=== PATIENT | female | born 1970 | race African-American/Black ===

== ENCOUNTER 2017-04-29 20:30 | Emergency (ER) | payer OTHER ==
[2017-04-30] MEDS: KETOROLAC 60 MG/2 ML INJ. IM (00:05)
== END 2017-04-29 23:35 | disposition home or self-care (01) ==
LOC: ER 23:35
DX: S82.832A Other fracture of upper and lower end of left fibula, initial encounter for closed fracture (principal); Z88.2 Allergy status to sulfonamides; X58.XXXA Exposure to other specified factors, initial encounter; Y93.89 Activity, other specified; Y99.8 Other external cause status; Y92.89 Other specified places as the place of occurrence of the external cause
CPT/HCPCS: 29515; 73590; 73610; 96372; 99284-25; J1885

== ENCOUNTER 2018-11-09 10:17 | Inpatient (IN) | payer MEDICARE, MEDICAID ==
[~2018-11-09] VITALS: Ht 157.5 cm; Wt 76.4 kg
[~2018-11-09 10:17] MED LIST: CIPR500T94 PO; HYDR-3164 PO; ONDA4TAB10 SL
[2018-11-09] MEDS ORDERED: DIPHTH,PERTUSS(ACELL),TET TOX 0.5 ML DISP.SYRIN. VAX IM ONE (10:45)
[2018-11-09] MEDS ORDERED: fentaNYL PF VIAL 100 MCG/2 ML VIAL IV ONE (10:45)
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
[2018-11-09] MEDS ORDERED: MORPHINE SULFATE 4 MG/ML VIAL. IV ONE (12:15)
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
--- NOTE | 2018-11-09 13:03 | RAD ---
EXAM: RIGHT SHOULDER 2 VIEWS. HISTORY: Right shoulder injury and pain. COMPARISON: None. FINDINGS: There is a comminuted fracture of the proximal humerus involving the surgical neck and at least the greater tuberosity. There is one shaft width posterior displacement of the main distal humeral fragment. The greater tuberosity fracture is only minimally displaced. Glenohumeral joint spaces and alignment are maintained. Acromioclavicular joint spaces and alignment are maintained. A metallic object projecting over the right shoulder may be within the patient's clothing. Calcified mediastinal lymph nodes are likely secondary to old granulomatous disease. IMPRESSION: 1. Comminuted fracture of the proximal humerus involving the surgical neck and greater tuberosity. One shaft width displacement along the surgical neck fracture line. Electronically signed by: Reymundo Jackson MD (11/09/2018 1:00 PM) [facility]
--- NOTE | 2018-11-09 13:04 | RAD ---
EXAM: TIBIA FIBULA BILAT 2 VIEWS. HISTORY: Bilateral leg pain after injury. COMPARISON: None. FINDINGS: A chronic healed fracture suspected along the left distal fibular metaphysis. No acute fractures are seen. The joint spaces and alignment of both knees and ankles appear maintained. IMPRESSION: 1. No acute fracture. Electronically signed by: Reymundo Jackson MD (11/09/2018 1:01 PM) [facility]
[2018-11-09 13:11] LABS: CREATININE 0.9 mg/dL (0.6-1.0); GFR 81.2; MAGNESIUM 2.1 mg/dL (1.8-2.4); POTASSIUM 3.9 mmol/L (3.5-5.1)
[2018-11-09 13:12] LABS: BASO % 0 % (0-3); EOS % 0 % (0-3); HEMATOCRIT 41.4 % (36.0-47.0); HEMOGLOBIN 14.3 g/dL (12.0-15.5); LYMPH # 0.8 x10^3/uL (1.0-4.8); LYMPH % 10 % (24-48); MEAN CORPUSCULAR HEMOGLOBIN 34 pg (25-35); MEAN CORPUSCULAR HGB CONC 35 g/dL (31-37); MEAN CORPUSCULAR VOLUME 99 fL (79-100); MONO # 0.5 x10^3/uL (0.0-1.1); MONO % 7 % (0-9); NEUT # 6.4 x10^3uL (1.8-7.7); NEUT % 83 % (31-73); PLATELET COUNT 250 x10^3/uL (140-400); RED BLOOD COUNT 4.19 x10^6/uL (3.50-5.40); RED CELL DISTRIBUTION WIDTH 17.5 % (11.5-14.5); WHITE BLOOD COUNT 7.7 x10^3/uL (4.0-11.0)
[2018-11-09 13:17] LABS: PROTHROMBIN TIME PATIENT 14.3 SEC (11.7-14.0)
[2018-11-09] MEDS ORDERED: ACETAMINOPHEN 325 MG TABLET. PO PRN (14:00)
[2018-11-09] MEDS ORDERED: ONDANSETRON PF 4 MG/2 ML VIAL. IV PRN (14:00)
[2018-11-09] MEDS ORDERED: cloNIDine HCL 0.1 MG TABLET PO PRN (14:00)
[2018-11-09] MEDS ORDERED: LORazepam 1 MG TABLET PO PRN (14:00)
[2018-11-09] MEDS: MULTIVIT INFUSN,ADULT 4,VIT K 10 ML, THIAMINE INJ 100 MG, FOLIC ACID INJ 1 MG in IV NOR... IV SCH (14:54)
[2018-11-09 15:00] VITALS: BP 115/77
[2018-11-09] MEDS: MORPHINE SULFATE 2 MG/ML VIAL. IV PRN ×3 (16:18→23:03)
[2018-11-09] MEDS ORDERED: NICOTINE 21MG PATCH. TD PRN (17:00)
[2018-11-09 19:00] VITALS: BP 141/87
[2018-11-09 23:00] VITALS: BP 142/84
[2018-11-10] MEDS: MORPHINE SULFATE 2 MG/ML VIAL. IV PRN ×6 (02:53→21:10)
[2018-11-10 03:00] VITALS: BP 152/87
[2018-11-10 07:00] VITALS: BP 172/96
[2018-11-10] MEDS: MULTIVIT INFUSN,ADULT 4,VIT K 10 ML, THIAMINE INJ 100 MG, FOLIC ACID INJ 1 MG in IV NOR... IV SCH (08:44)
--- NOTE | 2018-11-10 10:20 | PDOC ---
PROGRESS NOTES History of Present Illness History of Present Illness VTE Prophylaxis Ordered VTE Prophylaxis Devices: Yes VTE Pharmacological Prophylaxi: No Assessment/Plan Assessment/Plan A/P: Right humerus fracture - at surgical neck, displaced. This likely will require surgical correction. She is currently intoxicated, would recommend delaying surgery until she is sober to reduce perioperative risk of bleeding and to obtain informed consent. Tylenol and tramadol for pain, morphine for breakthrough. Zofran for nausea Comminuted fracture of the proximal humerus involving the surgical neck and greater tuberosity. One shaft width displacement along the surgical neck fracture line. Scalp hematoma - ice to site prn, tylenol for pain Acute alcohol intoxication - uncertain how heavily she actually drinks, will give banana bag and CIWA protocol Smoker - counseled on cessation, offered nicotine patch ct shoulder FEN - General diet, npo after midnight PPX - SCDs, ambulatory FULL CODE Dispo - inpatient med/surg for humerus fracture. 38 min pt exam, chart review, > 50% of time spent with exam, chart review, pt care coordination Vitals Vitals Vital Signs Date Time Temp Pulse Resp B/P (MAP) Pulse Ox O2 Delivery O2 Flow Rate FiO2 11/10/18 09:52 Room Air 11/10/18 07:00 98.4 81 18 172/96 (121) 98 98.4 Physical Exam General: Alert, Oriented X3, Cooperative, No acute distress, Other (intoxicated) Abdomen: Normal bowel sounds, Soft, No tenderness, No hepatosplenomegaly, No masses Extremities: No clubbing, No cyanosis, No edema, Normal pulses, Other (right shoulder tender) Skin: No rashes, No breakdown, No significant lesion Labs LABS IMPRESSION: 1. Comminuted fracture of the proximal humerus involving the surgical neck and greater tuberosity. One shaft width displacement along the surgical neck fracture line. Laboratory Tests Test 11/09/18 12:34 White Blood Count 7.7 x10^3/uL (4.0-11.0) Red Blood Count 4.19 x10^6/uL (3.50-5.40) Hemoglobin 14.3 g/dL (12.0-15.5) Hematocrit 41.4 % (36.0-47.0) Mean Corpuscular Volume 99 fL (79-100) Mean Corpuscular Hemoglobin 34 pg (25-35) Mean Corpuscular Hemoglobin Concent 35 g/dL (31-37) Red Cell Distribution Width 17.5 % (11.5-14.5) Platelet Count 250 x10^3/uL (140-400) Neutrophils (%) (Auto) 83 % (31-73) Lymphocytes (%) (Auto) 10 % (24-48) Monocytes (%) (Auto) 7 % (0-9) Eosinophils (%) (Auto) 0 % (0-3) Basophils (%) (Auto) 0 % (0-3) Neutrophils # (Auto) 6.4 x10^3uL (1.8-7.7) Lymphocytes # (Auto) 0.8 x10^3/uL (1.0-4.8) Monocytes # (Auto) 0.5 x10^3/uL (0.0-1.1) Eosinophils # (Auto) 0.0 x10^3/uL (0.0-0.7) Basophils # (Auto) 0.0 x10^3/uL (0.0-0.2) Prothrombin Time 14.3 SEC (11.7-14.0) Prothromb Time International Ratio 1.1 (0.8-1.1) Activated Partial Thromboplast Time 30 SEC (24-38) Sodium Level 141 mmol/L (136-145) Potassium Level 3.9 mmol/L (3.5-5.1) Chloride Level 101 mmol/L (98-107) Carbon Dioxide Level 19 mmol/L (21-32) Anion Gap 21 (6-14) Blood Urea Nitrogen 8 mg/dL (7-20) Creatinine 0.9 mg/dL (0.6-1.0) Estimated GFR (Cockcroft-Gault) 81.2 Glucose Level 95 mg/dL (70-99) Calcium Level 9.0 mg/dL (8.5-10.1) Magnesium Level 2.1 mg/dL (1.8-2.4) Ethyl Alcohol Level 228 mg/dL (0-10) Assessment and Plan Assessmemt and Plan Problems Medical Problems: (1) Alcohol intoxication Status: Acute (2) Humeral surgical neck fracture Status: Acute (3) Humerus fracture Status: Acute (4) Scalp hematoma Status: Acute Past Medical History Past Medical History Past Medical History: Anxiety, CHF Past Surgical History: , Hysterectomy Alcohol Use: Occasionally Drug Use: None, Marijuana Comment Review of Relevant I have reviewed the following items jean marie (where applicable) has been applied. Labs Laboratory Tests Test 11/09/18 12:34 White Blood Count 7.7 x10^3/uL (4.0-11.0) Red Blood Count 4.19 x10^6/uL (3.50-5.40) Hemoglobin 14.3 g/dL (12.0-15.5) Hematocrit 41.4 % (36.0-47.0) Mean Corpuscular Volume 99 fL (79-100) Mean Corpuscular Hemoglobin 34 pg (25-35) Mean Corpuscular Hemoglobin Concent 35 g/dL (31-37) Red Cell Distribution Width 17.5 % (11.5-14.5) Platelet Count 250 x10^3/uL (140-400) Neutrophils (%) (Auto) 83 % (31-73) Lymphocytes (%) (Auto) 10 % (24-48) Monocytes (%) (Auto) 7 % (0-9) Eosinophils (%) (Auto) 0 % (0-3) Basophils (%) (Auto) 0 % (0-3) Neutrophils # (Auto) 6.4 x10^3uL (1.8-7.7) Lymphocytes # (Auto) 0.8 x10^3/uL (1.0-4.8) Monocytes # (Auto) 0.5 x10^3/uL (0.0-1.1) Eosinophils # (Auto) 0.0 x10^3/uL (0.0-0.7) Basophils # (Auto) 0.0 x10^3/uL (0.0-0.2) Prothrombin Time 14.3 SEC (11.7-14.0) Prothromb Time International Ratio 1.1 (0.8-1.1) Activated Partial Thromboplast Time 30 SEC (24-38) Sodium Level 141 mmol/L (136-145) Potassium Level 3.9 mmol/L (3.5-5.1) Chloride Level 101 mmol/L (98-107) Carbon Dioxide Level 19 mmol/L (21-32) Anion Gap 21 (6-14) Blood Urea Nitrogen 8 mg/dL (7-20) Creatinine 0.9 mg/dL (0.6-1.0) Estimated GFR (Cockcroft-Gault) 81.2 Glucose Level 95 mg/dL (70-99) Calcium Level 9.0 mg/dL (8.5-10.1) Magnesium Level 2.1 mg/dL (1.8-2.4) Ethyl Alcohol Level 228 mg/dL (0-10) Laboratory Tests Test 11/09/18 12:34 White Blood Count 7.7 x10^3/uL (4.0-11.0) Red Blood Count 4.19 x10^6/uL (3.50-5.40) Hemoglobin 14.3 g/dL (12.0-15.5) Hematocrit 41.4 % (36.0-47.0) Mean Corpuscular Volume 99 fL (79-100) Mean Corpuscular Hemoglobin 34 pg (25-35) Mean Corpuscular Hemoglobin Concent 35 g/dL (31-37) Red Cell Distribution Width 17.5 % (11.5-14.5) Platelet Count 250 x10^3/uL (140-400) Neutrophils (%) (Auto) 83 % (31-73) Lymphocytes (%) (Auto) 10 % (24-48) Monocytes (%) (Auto) 7 % (0-9) Eosinophils (%) (Auto) 0 % (0-3) Basophils (%) (Auto) 0 % (0-3) Neutrophils # (Auto) 6.4 x10^3uL (1.8-7.7) Lymphocytes # (Auto) 0.8 x10^3/uL (1.0-4.8) Monocytes # (Auto) 0.5 x10^3/uL (0.0-1.1) Eosinophils # (Auto) 0.0 x10^3/uL (0.0-0.7) Basophils # (Auto) 0.0 x10^3/uL (0.0-0.2) Prothrombin Time 14.3 SEC (11.7-14.0) Prothromb Time International Ratio 1.1 (0.8-1.1) Activated Partial Thromboplast Time 30 SEC (24-38) Sodium Level 141 mmol/L (136-145) Potassium Level 3.9 mmol/L (3.5-5.1) Chloride Level 101 mmol/L (98-107) Carbon Dioxide Level 19 mmol/L (21-32) Anion Gap 21 (6-14) Blood Urea Nitrogen 8 mg/dL (7-20) Creatinine 0.9 mg/dL (0.6-1.0) Estimated GFR (Cockcroft-Gault) 81.2 Glucose Level 95 mg/dL (70-99) Calcium Level 9.0 mg/dL (8.5-10.1) Magnesium Level 2.1 mg/dL (1.8-2.4) Ethyl Alcohol Level 228 mg/dL (0-10) Medications Current Medications Fentanyl Citrate (Fentanyl 2ml Vial) 50 mcg 1X ONCE IV Last administered on at 10:56; Start 11/09/18 at 10:45; Stop 11/09/18 at 10:46; Status DC Diphtheria/ Tetanus/Acell Pertussis (Boostrix) 0.5 ml ONCE ONCE VAX IM Last administered on 11/09/18at 10:57; Start 11/09/18 at 10:45; Stop 11/09/18 at 10:46; Status DC Morphine Sulfate (Morphine Sulfate) 4 mg 1X ONCE IV Last administered on 11/09/18at 12:18; Start 11/09/18 at 12:15; Stop 11/09/18 at 12:16; Status DC Multivitamins 10 ml/Thiamine HCl 100 mg/Folic Acid 1 mg/Sodium Chloride 1,011.2 ml @ 100 mls/ hr DAILY IV Last administered on 11/10/18at 08:44; Start 11/09/18 at 14:30; Stop 11/13/18 at 19:07 Lorazepam (Ativan) 2 mg PRN Q1HR PRN PO For CIWA 8-14; Start 11/09/18 at 14:00 Lorazepam (Ativan Inj) 2 mg PRN Q1HR PRN IV For CIWA 8-14 Last administered on 11/09/18at 18:20; Start 11/09/18 at 14:00 Clonidine HCl (Catapres) 0.1 mg PRN Q1HR PRN PO SBP > 180 or DBP > 100, MRX3; Start 11/09/18 at 14:00 Ondansetron HCl (Zofran) 4 mg PRN Q6HRS PRN IV NAUSEA/VOMITING; Start 11/09/18 at 14:00 Acetaminophen (Tylenol) 650 mg PRN Q6HRS PRN PO pain; Start 11/09/18 at 14:00 Tramadol HCl (Ultram) 50 mg PRN Q6HRS PRN PO PAIN MILD; Start 11/09/18 at 14:00 Morphine Sulfate (Morphine Sulfate) 2 mg PRN Q2HR PRN IV PAIN Last administered on 11/10/18at 09:52; Start 11/09/18 at 14:00 Nicotine (Nicoderm Cq 21mg) 1 patch PRN DAILY PRN TD SMOKING CESSATION; Start 11/09/18 at 17:00 Active Scripts Active [place] 5-325 Tablet (Acetaminophen/Hydrocodone Bitart) 1 Each Tablet 1 Tab PO PRN Q6HRS PRN Zofran Odt (Ondansetron) 4 Mg Tab.rapdis 1 Tab SL Q8HRS Cipro (Ciprofloxacin Hcl) 500 Mg Tablet 1 Tab PO BID Vitals/I & O Vital Sign - Last 24 Hours 11/09/18 11/09/18 11/09/18 11/09/18 10:31 10:56 11:00 12:00 Temp 98.3 98.3 Pulse 82 86 82 Resp 20 16 B/P (MAP) 114/89 (97) 174/103 (126) 133/82 (99) Pulse Ox 96 96 96 O2 Delivery Room Air Room Air Room Air 11/09/18 11/09/18 11/09/18 11/09/18 15:00 16:18 19:00 19:45 Temp 98.1 98.3 98.1 98.3 Pulse 74 84 Resp 18 18 B/P (MAP) 115/77 (90) 141/87 (105) Pulse Ox 98 91 O2 Delivery Room Air Room Air Room Air Room Air 11/09/18 11/09/18 11/09/18 11/10/18 20:39 23:00 23:03 02:53 Temp 98.5 98.5 Pulse 85 Resp 18 B/P (MAP) 142/84 (103) Pulse Ox 92 O2 Delivery Room Air Room Air Room Air Room Air 11/10/18 11/10/18 11/10/18 11/10/18 03:00 06:17 06:47 07:00 Temp 98.4 98.4 98.4 98.4 Pulse 80 81 Resp 18 18 B/P (MAP) 152/87 (108) 172/96 (121) Pulse Ox 95 98 O2 Delivery Room Air Room Air Room Air Room Air 11/10/18 11/10/18 08:00 09:52 O2 Delivery Room Air Room Air THA MORRISON MD Nov 10, 2018 10:20
[2018-11-10 11:00] VITALS: BP 173/98
[2018-11-10] MEDS ORDERED: IV RINGERS,LACTATED 1000ML 1,000 ML IV SCH (12:21)
[2018-11-10] MEDS ORDERED: fentaNYL PF VIAL 100 MCG/2 ML VIAL IV PRN (12:30)
[2018-11-10] MEDS ORDERED: PROCHLORPERAZINE 10 MG/2 ML VIAL. IV PRN (12:30)
[2018-11-10] MEDS ORDERED: MORPHINE SULFATE 2 MG/ML VIAL. IV PRN (12:30)
[2018-11-10] MEDS ORDERED: LIDOCAINE 1% PF 2 ML VIAL. ID PRN (12:30)
[2018-11-10] MEDS ORDERED: BUPIVACAINE-EPI 0.25%-1:200000 MPF 30 ML VIAL. ONE ×2 (14:46→14:47)
[2018-11-10 15:00] VITALS: BP 171/101
--- NOTE | 2018-11-10 16:09 | RAD ---
CT study of the right humerus without contrast Clinical indications: Right humerus fracture. Preoperative planning. TECHNIQUE: Noncontrast helical CT scanning of the right humerus was performed. Multiplanar 2-D reconstructions were generated. PQRS compliance Statement One or more of the following individualized dose reduction techniques were utilized for this study: 1. Automated exposure control 2. Adjustment of the mA and/or kV according to patient size 3. Use of iterative reconstruction technique Findings: There is a comminuted fracture of the proximal right humerus involving the proximal metaphysis.. The shaft is displaced laterally and posteriorly. There is foreshortening of the fracture. No significant angulation is evident. Additional fracture lines are seen extending into the lateral aspect of the humeral head and greater tubercle and a fracture line is seen extending into the lesser tubercle as well. Fracture line is seen extending into the inferior aspect of the bicipital groove. No articular surface fracture of the humeral head is seen. The glenohumeral joint is normally aligned. No AC joint separation is seen. No lytic process is seen. Soft tissue edema is seen without definite soft tissue hematoma. No soft tissue mass is seen. IMPRESSION: Posttraumatic comminuted fracture of the proximal right humerus. Electronically signed by: Leonel Li MD (11/10/2018 4:06 PM) [id number]
[2018-11-10] MEDS ORDERED: fentaNYL PF VIAL 100 MCG/2 ML VIAL ONE (16:21)
[2018-11-10] MEDS ORDERED: fentaNYL PF VIAL 100 MCG/2 ML VIAL IV ONE (16:30)
[2018-11-10] MEDS: traMADol 50 MG TABLET PO PRN (18:10)
[2018-11-10 19:00] VITALS: BP 155/78
[2018-11-10 23:00] VITALS: BP 137/80
[2018-11-11] VITALS (11 sets, daily range): BP systolic 107–166; BP diastolic 61–95
[2018-11-11] MEDS: traMADol 50 MG TABLET PO PRN (00:55)
[2018-11-11] MEDS: MORPHINE SULFATE 2 MG/ML VIAL. IV PRN ×2 (03:10→07:11)
[2018-11-11 06:34] LABS: BASO % 1 % (0-3); EOS # 0.1 x10^3/uL (0.0-0.7); EOS % 3 % (0-3); HEMATOCRIT 37.7 % (36.0-47.0); HEMOGLOBIN 12.8 g/dL (12.0-15.5); LYMPH # 0.8 x10^3/uL (1.0-4.8); LYMPH % 18 % (24-48); MEAN CORPUSCULAR HEMOGLOBIN 34 pg (25-35); MEAN CORPUSCULAR HGB CONC 34 g/dL (31-37); MEAN CORPUSCULAR VOLUME 99 fL (79-100); MONO # 0.6 x10^3/uL (0.0-1.1); MONO % 12 % (0-9); NEUT # 3.2 x10^3uL (1.8-7.7); NEUT % 67 % (31-73); PLATELET COUNT 190 x10^3/uL (140-400); RED BLOOD COUNT 3.81 x10^6/uL (3.50-5.40); WHITE BLOOD COUNT 4.7 x10^3/uL (4.0-11.0)
[2018-11-11 06:59] LABS: ALBUMIN 3.8 g/dL (3.4-5.0); CALCIUM 9.3 mg/dL (8.5-10.1); CREATININE 0.7 mg/dL (0.6-1.0); GFR 108.5; POTASSIUM 3.3 mmol/L (3.5-5.1); TOTAL BILIRUBIN 1.1 mg/dL (0.2-1.0); TOTAL PROTEIN 7.5 g/dL (6.4-8.2)
[2018-11-11] MEDS ORDERED: BUPIVACAINE-EPI 0.25%-1:200000 MPF 30 ML VIAL. ONE (07:41)
[2018-11-11] MEDS ORDERED: LIDOCAINE 2% PF 5 ML VIAL. ONE (08:04)
[2018-11-11] MEDS ORDERED: DEXAMETHASONE SOD PHOS 4 MG/ML VIAL ONE (08:04)
[2018-11-11] MEDS ORDERED: PROPOFOL 20 ML IV ONE (08:04)
[2018-11-11] MEDS ORDERED: ONDANSETRON PF 4 MG/2 ML VIAL. ONE (08:05)
[2018-11-11] MEDS ORDERED: fentaNYL PF VIAL 100 MCG/2 ML VIAL ONE ×3 (08:06→11:35)
[2018-11-11] MEDS ORDERED: ROCURONIUM 50 MG/5 ML VIAL. ONE (08:06)
[2018-11-11] MEDS: IV RINGERS,LACTATED 1000ML 1,000 ML IV SCH ×2 (08:10→20:05)
[2018-11-11] MEDS ORDERED: MIDAZOLAM HCL/PF 2 MG/2 ML VIAL. ONE (08:12)
[2018-11-11] MEDS ORDERED: PHENYLEPHRINE in 0.9% NACL PF 1 MG/10 ML SYRINGE. IV ONE (09:23)
[2018-11-11] MEDS ORDERED: PHENYLEPHRINE 10 MG/ML VIAL. ONE (09:28)
[2018-11-11] MEDS ORDERED: NEOSTIGMINE METHYLSULFATE 5 MG/5 ML SYRINGE. ONE (09:35)
[2018-11-11] MEDS ORDERED: GLYCOPYRROLATE 1 MG/5 ML VIAL. ONE (09:35)
[2018-11-11] MEDS ORDERED: PROCHLORPERAZINE 10 MG/2 ML VIAL. ONE (11:35)
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
[2018-11-11] MEDS: fentaNYL PF VIAL 100 MCG/2 ML VIAL IV PRN ×2 (11:40→11:46)
[2018-11-11] MEDS ORDERED: HYDROmorphone 2 MG/ML VIAL ONE (11:51)
--- NOTE | 2018-11-11 11:51 | PDOC4 ---
Operative Note Operative Note Date of Procedure: November 11, 2018 Pre-Op Diagnosis: S42.221A Two-part displaced fracture of surgical neck of right humerus, initial encounter for closed fracture Post-Op Diagnosis: S42.221A Two-part displaced fracture of surgical neck of right humerus, initial encounter for closed fracture Procedure: CPT 99968 open treatment proximal humeral surgical neck fracture with internal fixation, and stabilization of nondisplaced tuberosity fractures Surgeon: Carroll Enamorado MD Hospice Clinical Manager: Marisa NUGENT Anesthesia: General EBL: 200 mL Specimens Obtained: none Complications: none Drains: none Indications for Procedure: The patient is a 48-year-old woman who sustained a closed displaced fracture of the proximal humerus. The main fracture line is a 2 part displaced fracture with essentially 100% displacement of the shaft head. CT scan also shows some comminution involving the greater and lesser tuberosities. I recommended open treatment with internal fixation, using a plate and screws. The patient and I discussed the risks, benefits and alternatives of surgery. I discussed risks with her such as avascular necrosis, need for hardware removal, infection, nonunion or malunion, shoulder stiffness, neurovascular injury, bleeding, scarring, or other potential surgical or anesthetic complications. All of her questions about surgery were answered and she desired to proceed. Procedure in Detail: The patient was identified in the preoperative holding area. The correct right shoulder was marked by me. The patient was taken to the operating room where general anesthesia was used. The patient was positioned supine on the operating table. Preoperative antibiotics were given intravenously. A timeout procedure was performed. The limb was prepared in sterile fashion with ChloraPrep. Sterile drapes were applied. The large image intensifier was positioned at the head of the bed, and used throughout the procedure, and all of the images were interpreted intraoperatively by me. The deltopectoral approach was used. I injected local anesthetic, bupivacaine 0.25% with epinephrine, into the area of the proposed incision. A 10 blade scalpel was used for sharp dissection. The deltopectoral interval was identified. The cephalic vein was retracted laterally. A Kobel retractor was placed, with care made not to injure the musculocutaneous nerve or the axillary nerve. I placed a bent Alfonso retractor, which my medical assistant secretary used to expose the humeral head. There was comminution of the greater tuberosity which was protected by stabilizing it with K wires to prevent any further displacement. Fracture hematoma was cleared with irrigation and a rongeurs. The shaft was markedly displaced posteriorly, and required traction and a bone hook to disimpact the shaft, and allowed it to be reduced underneath the head. K wires were used to stabilize the fracture reduction, and the large image intensifier was used to confirm the reduction. Several attempts were required to get a satisfactory reduction. Next a Synthes locking periarticular proximal humerus plate was applied. K wires and a nonlocking screw were used, for preliminary plate application, and the plate was repositioned several times until satisfactory positioning was achieved on the image intensifier. The greater tuberosity fragment was captured by the plate, and I applied the plate a few millimeters more proximal than usual, to help capture the tuberosity fragment and stabilize it. The entire proximal cluster of the plate was now filled with locking screws using the drill guide, and after predrilling. Measurements were taken off the drill bit. I made care not to plunge into the joint with the drill bit, and each of the screws were placed about 6 mm short of the subchondral bone and articular surface to avoid any joint penetration or joint impingement. Some of the drilling and screw application was done using live fluoroscopy to prevent joint penetration. The remaining locking holes in the shaft portion of the plate were secured with locking screws, after predrilling with the locking guide. One of the kickstand screws was noted to be too long and was changed for a more appropriate length. Final images in AP and lateral planes showed satisfactory reduction and fixation. Copious saline irrigation was used. The skin edges were injected with additional 0.25% bupivacaine with epinephrine. Outer gloves were changed. The deltopectoral fascia was repaired by me with #0 Vicryl interrupted sutures. My medical assistant secretary closed the subcutaneous tissues with 2-0 Vicryl. She placed servando in the skin. She applied a bulky sterile dressing including Xeroform. Needle and sponge counts were correct. There were no apparent complications. CARROLL ENAMORADO MD Nov 11, 2018 11:51
[2018-11-11] MEDS: HYDROmorphone 2 MG/ML VIAL IV PRN ×2 (11:53→11:58)
[2018-11-11] MEDS ORDERED: chlordiazePOXIDE HCL 25 MG CAPSULE PO PRN (12:00)
[2018-11-11] MEDS: IV 1/2 NORMAL SALINE 1,000 ML IV SCH (12:05)
[2018-11-11] MEDS ORDERED: POLYETHYLENE GLYCOL 3350 17 GM PACKET. PO PRN (12:15)
[2018-11-11] MEDS ORDERED: ONDANSETRON PF 4 MG/2 ML VIAL. IV PRN (12:15)
[2018-11-11] MEDS ORDERED: oxyCODONE/APAP 5/325 1 TAB TABLET PO PRN (12:15)
[2018-11-11] MEDS ORDERED: MORPHINE SULFATE 2 MG/ML VIAL. IV PRN (12:15)
[2018-11-11] MEDS ORDERED: DEXTROSE 50% 25 GM / 50ML DISP.SYRIN. IV PRN (12:15)
[2018-11-11] MEDS ORDERED: fentaNYL PF VIAL 100 MCG/2 ML VIAL IV PRN (12:15)
[2018-11-11] MEDS ORDERED: POTASSIUM CHLORIDE 20 MEQ TABLET.ER. PO ONE (12:30)
--- NOTE | 2018-11-11 12:44 | PDOC ---
PROGRESS NOTES Chief Complaint Chief Complaint Right humerus fracture - Scalp hematoma - Acute alcohol intoxication - levels 220s Smoker HIgh BP - no dx HTN History of Present Illness History of Present Illness Out having rt shoulder repair BP high, tachy etoh levels 220s LOw K 3,.3 PLAN: Librium CLonidine o.1 TID POst op labs RENA SALAZAR AA referral Kcl 40 x 1 Vitals Vitals Vital Signs Date Time Temp Pulse Resp B/P (MAP) Pulse Ox O2 Delivery O2 Flow Rate FiO2 11/11/18 12:00 78 16 138/81 94 Room Air 11/11/18 11:46 8.0 11/11/18 11:27 97.2 97.2 Physical Exam General: Alert, Cooperative Heart: Regular rate Abdomen: Soft Extremities: Other (she has tenderness and swelling at the right shoulder, and the slight cosmetic deformity consistent with a fracture, I don't believe the shoulder is dislocated. She had difficulty activating the deltoid because of the pain, and it's unclear whether his axillary nerve injury or simply inhibition from the painful fracture. The distal neurovascular function seems normal, with intact light touch sensation, and able to demonstrate the motor function of the radial ulnar and median nerves. The radial pulse is intact.) Skin: Other (ecchymosis is present at the shoulder area. The skin is intact over the fracture) Labs LABS Laboratory Tests Test 11/11/18 05:00 White Blood Count 4.7 x10^3/uL (4.0-11.0) Red Blood Count 3.81 x10^6/uL (3.50-5.40) Hemoglobin 12.8 g/dL (12.0-15.5) Hematocrit 37.7 % (36.0-47.0) Mean Corpuscular Volume 99 fL (79-100) Mean Corpuscular Hemoglobin 34 pg (25-35) Mean Corpuscular Hemoglobin Concent 34 g/dL (31-37) Red Cell Distribution Width 17.0 % (11.5-14.5) Platelet Count 190 x10^3/uL (140-400) Neutrophils (%) (Auto) 67 % (31-73) Lymphocytes (%) (Auto) 18 % (24-48) Monocytes (%) (Auto) 12 % (0-9) Eosinophils (%) (Auto) 3 % (0-3) Basophils (%) (Auto) 1 % (0-3) Neutrophils # (Auto) 3.2 x10^3uL (1.8-7.7) Lymphocytes # (Auto) 0.8 x10^3/uL (1.0-4.8) Monocytes # (Auto) 0.6 x10^3/uL (0.0-1.1) Eosinophils # (Auto) 0.1 x10^3/uL (0.0-0.7) Basophils # (Auto) 0.0 x10^3/uL (0.0-0.2) Sodium Level 139 mmol/L (136-145) Potassium Level 3.3 mmol/L (3.5-5.1) Chloride Level 101 mmol/L (98-107) Carbon Dioxide Level 29 mmol/L (21-32) Anion Gap 9 (6-14) Blood Urea Nitrogen 2 mg/dL (7-20) Creatinine 0.7 mg/dL (0.6-1.0) Estimated GFR (Cockcroft-Gault) 108.5 BUN/Creatinine Ratio 3 (6-20) Glucose Level 88 mg/dL (70-99) Calcium Level 9.3 mg/dL (8.5-10.1) Total Bilirubin 1.1 mg/dL (0.2-1.0) Aspartate Amino Transf (AST/SGOT) 22 U/L (15-37) Alanine Aminotransferase (ALT/SGPT) 26 U/L (14-59) Alkaline Phosphatase 75 U/L (46-116) Total Protein 7.5 g/dL (6.4-8.2) Albumin 3.8 g/dL (3.4-5.0) Albumin/Globulin Ratio 1.0 (1.0-1.7) Review of Systems Review of Systems out having OR Assessment and Plan Assessmemt and Plan Problems Medical Problems: (1) Alcohol intoxication Status: Acute (2) Humeral surgical neck fracture Status: Acute (3) Humerus fracture Status: Acute (4) Scalp hematoma Status: Acute Comment Review of Relevant I have reviewed the following items jean marie (where applicable) has been applied. Labs Laboratory Tests Test 11/11/18 05:00 White Blood Count 4.7 x10^3/uL (4.0-11.0) Red Blood Count 3.81 x10^6/uL (3.50-5.40) Hemoglobin 12.8 g/dL (12.0-15.5) Hematocrit 37.7 % (36.0-47.0) Mean Corpuscular Volume 99 fL (79-100) Mean Corpuscular Hemoglobin 34 pg (25-35) Mean Corpuscular Hemoglobin Concent 34 g/dL (31-37) Red Cell Distribution Width 17.0 % (11.5-14.5) Platelet Count 190 x10^3/uL (140-400) Neutrophils (%) (Auto) 67 % (31-73) Lymphocytes (%) (Auto) 18 % (24-48) Monocytes (%) (Auto) 12 % (0-9) Eosinophils (%) (Auto) 3 % (0-3) Basophils (%) (Auto) 1 % (0-3) Neutrophils # (Auto) 3.2 x10^3uL (1.8-7.7) Lymphocytes # (Auto) 0.8 x10^3/uL (1.0-4.8) Monocytes # (Auto) 0.6 x10^3/uL (0.0-1.1) Eosinophils # (Auto) 0.1 x10^3/uL (0.0-0.7) Basophils # (Auto) 0.0 x10^3/uL (0.0-0.2) Sodium Level 139 mmol/L (136-145) Potassium Level 3.3 mmol/L (3.5-5.1) Chloride Level 101 mmol/L (98-107) Carbon Dioxide Level 29 mmol/L (21-32) Anion Gap 9 (6-14) Blood Urea Nitrogen 2 mg/dL (7-20) Creatinine 0.7 mg/dL (0.6-1.0) Estimated GFR (Cockcroft-Gault) 108.5 BUN/Creatinine Ratio 3 (6-20) Glucose Level 88 mg/dL (70-99) Calcium Level 9.3 mg/dL (8.5-10.1) Total Bilirubin 1.1 mg/dL (0.2-1.0) Aspartate Amino Transf (AST/SGOT) 22 U/L (15-37) Alanine Aminotransferase (ALT/SGPT) 26 U/L (14-59) Alkaline Phosphatase 75 U/L (46-116) Total Protein 7.5 g/dL (6.4-8.2) Albumin 3.8 g/dL (3.4-5.0) Albumin/Globulin Ratio 1.0 (1.0-1.7) Laboratory Tests Test 11/11/18 05:00 White Blood Count 4.7 x10^3/uL (4.0-11.0) Red Blood Count 3.81 x10^6/uL (3.50-5.40) Hemoglobin 12.8 g/dL (12.0-15.5) Hematocrit 37.7 % (36.0-47.0) Mean Corpuscular Volume 99 fL (79-100) Mean Corpuscular Hemoglobin 34 pg (25-35) Mean Corpuscular Hemoglobin Concent 34 g/dL (31-37) Red Cell Distribution Width 17.0 % (11.5-14.5) Platelet Count 190 x10^3/uL (140-400) Neutrophils (%) (Auto) 67 % (31-73) Lymphocytes (%) (Auto) 18 % (24-48) Monocytes (%) (Auto) 12 % (0-9) Eosinophils (%) (Auto) 3 % (0-3) Basophils (%) (Auto) 1 % (0-3) Neutrophils # (Auto) 3.2 x10^3uL (1.8-7.7) Lymphocytes # (Auto) 0.8 x10^3/uL (1.0-4.8) Monocytes # (Auto) 0.6 x10^3/uL (0.0-1.1) Eosinophils # (Auto) 0.1 x10^3/uL (0.0-0.7) Basophils # (Auto) 0.0 x10^3/uL (0.0-0.2) Sodium Level 139 mmol/L (136-145) Potassium Level 3.3 mmol/L (3.5-5.1) Chloride Level 101 mmol/L (98-107) Carbon Dioxide Level 29 mmol/L (21-32) Anion Gap 9 (6-14) Blood Urea Nitrogen 2 mg/dL (7-20) Creatinine 0.7 mg/dL (0.6-1.0) Estimated GFR (Cockcroft-Gault) 108.5 BUN/Creatinine Ratio 3 (6-20) Glucose Level 88 mg/dL (70-99) Calcium Level 9.3 mg/dL (8.5-10.1) Total Bilirubin 1.1 mg/dL (0.2-1.0) Aspartate Amino Transf (AST/SGOT) 22 U/L (15-37) Alanine Aminotransferase (ALT/SGPT) 26 U/L (14-59) Alkaline Phosphatase 75 U/L (46-116) Total Protein 7.5 g/dL (6.4-8.2) Albumin 3.8 g/dL (3.4-5.0) Albumin/Globulin Ratio 1.0 (1.0-1.7) Medications Current Medications Fentanyl Citrate (Fentanyl 2ml Vial) 50 mcg 1X ONCE IV Last administered on 11/09/18at 10:56; Start 11/09/18 at 10:45; Stop 11/09/18 at 10:46; Status DC Diphtheria/ Tetanus/Acell Pertussis (Boostrix) 0.5 ml ONCE ONCE VAX IM Last administered on 11/09/18at 10:57; Start 11/09/18 at 10:45; Stop 11/09/18 at 10:46; Status DC Morphine Sulfate (Morphine Sulfate) 4 mg 1X ONCE IV Last administered on 11/09/18at 12:18; Start 11/09/18 at 12:15; Stop 11/09/18 at 12:16; Status DC Multivitamins 10 ml/Thiamine HCl 100 mg/Folic Acid 1 mg/Sodium Chloride 1,011.2 ml @ 100 mls/ hr DAILY IV Last administered on 11/10/18at 08:44; Start 11/09/18 at 14:30; Stop 11/13/18 at 19:07 Lorazepam (Ativan) 2 mg PRN Q1HR PRN PO For CIWA 8-14; Start 11/09/18 at 14:00 Lorazepam (Ativan Inj) 2 mg PRN Q1HR PRN IV For CIWA 8-14 Last administered on 11/09/18at 18:20; Start 11/09/18 at 14:00 Clonidine HCl (Catapres) 0.1 mg PRN Q1HR PRN PO SBP > 180 or DBP > 100, MRX3; Start 11/09/18 at 14:00 Ondansetron HCl (Zofran) 4 mg PRN Q6HRS PRN IV NAUSEA/VOMITING Last administered on 11/11/18at 12:15; Start 11/09/18 at 14:00 Acetaminophen (Tylenol) 650 mg PRN Q6HRS PRN PO pain; Start 11/09/18 at 14:00 Tramadol HCl (Ultram) 50 mg PRN Q6HRS PRN PO PAIN MILD Last administered on 11/11/18at 00:55; Start 11/09/18 at 14:00 Morphine Sulfate (Morphine Sulfate) 2 mg PRN Q2HR PRN IV PAIN Last administered on 11/11/18at 07:11; Start 11/09/18 at 14:00 Nicotine (Nicoderm Cq 21mg) 1 patch PRN DAILY PRN TD SMOKING CESSATION; Start 11/09/18 at 17:00 Fentanyl Citrate (Fentanyl 2ml Vial) 25 mcg PRN Q5MIN PRN IV MILD PAIN 1-3; Start 11/10/18 at 12:30; Stop 11/11/18 at 12:29; Status DC Fentanyl Citrate (Fentanyl 2ml Vial) 50 mcg PRN Q5MIN PRN IV MODERATE TO SEVERE PAIN Last administered on 11/11/18at 11:46; Start 11/10/18 at 12:30; Stop 11/11/18 at 12:29; Status DC Morphine Sulfate (Morphine Sulfate) 1 mg PRN Q10MIN PRN IV SEVERE PAIN 7-10; Start 11/10/18 at 12:30; Stop 11/11/18 at 12:29; Status DC Ringer's Solution 1,000 ml @ 30 mls/hr Q24H IV Last administered on 11/10/18at 16:31; Start 11/10/18 at 12:21; Stop 11/11/18 at 00:20; Status DC Lidocaine HCl (Xylocaine-Mpf 1% 2ml Vial) 2 ml PRN 1X PRN ID PRIOR TO IV START; Start 11/10/18 at 12:30; Stop 11/11/18 at 12:29; Status DC Hydromorphone HCl (Dilaudid) 0.5 mg PRN Q10MIN PRN IV SEV PAIN, Second choice Last administered on 11/11/18at 11:58; Start 11/10/18 at 12:30; Stop 11/11/18 at 12:29; Status DC Prochlorperazine Edisylate (Compazine) 5 mg PACU PRN PRN IV NAUSEA, MRX1 Last administered on 11/11/18at 11:42; Start 11/10/18 at 12:30; Stop 11/11/18 at 12:29; Status DC Bupivacaine HCl/ Epinephrine Bitart (Sensorcaine-Epi 0.25%-1:669917 Mpf) 30 ml STK-MED ONCE .ROUTE Last administered on 11/11/18at 08:57; Start 11/10/18 at 14:46; Stop 11/10/18 at 15:47; Status DC Bupivacaine HCl/ Epinephrine Bitart (Sensorcaine-Epi 0.25%-1:977277 Mpf) 30 ml STK-MED ONCE .ROUTE ; Start 11/10/18 at 14:47; Stop 11/10/18 at 14:48; Status Cancel Fentanyl Citrate (Fentanyl 2ml Vial) 100 mcg STK-MED ONCE .ROUTE ; Start 11/10/18 at 16:21; Stop 11/10/18 at 16:22; Status DC Fentanyl Citrate (Fentanyl 2ml Vial) 100 mcg 1X ONCE IV Last administered on 11/10/18at 16:30; Start 11/10/18 at 16:30; Stop 11/10/18 at 16:31; Status DC Ringer's Solution 1,000 ml @ 75 mls/hr [id number] IV Last administered on 11/11/18at 08:10; Start 11/11/18 at 06:45 Propofol 20 ml @ As Directed STK-MED ONCE IV ; Start 11/11/18 at 08:04; Stop 11/11/18 at 08:05; Status DC Dexamethasone Sodium Phosphate (Decadron) 4 mg STK-MED ONCE .ROUTE ; Start 11/11/18 at 08:04; Stop 11/11/18 at 08:05; Status DC Lidocaine HCl (Lidocaine Pf 2% Vial) 5 ml STK-MED ONCE .ROUTE ; Start 11/11/18 at 08:04; Stop 11/11/18 at 08:05; Status DC Ondansetron HCl (Zofran) 4 mg STK-MED ONCE .ROUTE ; Start 11/11/18 at 08:05; Stop 11/11/18 at 08:06; Status DC Rocuronium [place] (Zemuron) 50 mg STK-MED ONCE .ROUTE ; Start 11/11/18 at 08:06; Stop 11/11/18 at 08:07; Status DC Fentanyl Citrate (Fentanyl 2ml Vial) 100 mcg STK-MED ONCE .ROUTE ; Start 11/11/18 at 08:06; Stop 11/11/18 at 08:07; Status DC Midazolam HCl (Versed) 2 mg STK-MED ONCE .ROUTE ; Start 11/11/18 at 08:12; Stop 11/11/18 at 08:13; Status DC Cefazolin Sodium/ Dextrose 50 ml @ 100 mls/hr 1X PREOP PRN IV comm Last administered on 11/11/18at 08:56; Start 11/11/18 at 08:45 Bupivacaine HCl/ Epinephrine Bitart (Sensorcaine-Epi 0.25%-1:000730 Mpf) 30 ml STK-MED ONCE .ROUTE ; Start 11/11/18 at 07:41; Stop 11/11/18 at 08:42; Status DC Phenylephrine HCl (PHENYLEPHRINE in 0.9% NACL PF) 1 mg STK-MED ONCE IV ; Start 11/11/18 at 09:23; Stop 11/11/18 at 09:24; Status DC Phenylephrine HCl (Andrea-Synephrine Inj) 10 mg STK-MED ONCE .ROUTE ; Start 11/11/18 at 09:28; Stop 11/11/18 at 09:29; Status DC Glycopyrrolate (Robinul) 1 mg STK-MED ONCE .ROUTE ; Start 11/11/18 at 09:35; Stop 11/11/18 at 09:36; Status DC Neostigmine Methylsulfate (Neostigmine Methylsulfate) 5 mg STK-MED ONCE .ROUTE ; Start 11/11/18 at 09:35; Stop 11/11/18 at 09:36; Status DC Fentanyl Citrate (Fentanyl 2ml Vial) 100 mcg STK-MED ONCE .ROUTE ; Start 11/11/18 at 09:53; Stop 11/11/18 at 09:54; Status DC Fentanyl Citrate (Fentanyl 2ml Vial) 100 mcg STK-MED ONCE .ROUTE ; Start 11/11/18 at 11:35; Stop 11/11/18 at 11:36; Status DC Prochlorperazine Edisylate (Compazine) 10 mg STK-MED ONCE .ROUTE ; Start 11/11/18 at 11:35; Stop 11/11/18 at 11:36; Status DC Hydromorphone HCl (Dilaudid) 2 mg STK-MED ONCE .ROUTE ; Start 11/11/18 at 11:51; Stop 11/11/18 at 11:52; Status DC Chlordiazepoxide (Librium) 25 mg PRN Q6HRS PRN PO ANXIETY / AGITATION; Start 11/11/18 at 12:00 Potassium Chloride (Klor-Con) 40 meq 1X ONCE PO ; Start 11/11/18 at 12:30; Stop 11/11/18 at 12:31; Status DC Clonidine HCl (Catapres) 0.1 mg Q8HRS PO ; Start 11/11/18 at 14:00 Morphine Sulfate (Morphine Sulfate) 2 mg PRN Q1HR PRN IV PAIN; Start 11/11/18 at 12:15 Fentanyl Citrate (Fentanyl 2ml Vial) 25 mcg PRN Q1HR PRN IV PAIN; Start 11/11/18 at 12:15 Multivitamins (Thera M Plus) 1 tab DAILY PO ; Start 11/12/18 at 09:00 Senna/Docusate Sodium (Senna Plus) 1 tab DAILY PO ; Start 11/12/18 at 09:00 Polyethylene Glycol (miraLAX PACKET) 17 gm PRN DAILY PRN PO CONSTIPATION; Start 11/11/18 at 12:15 Vitamin D (Vitamin D3) 1,000 unit DAILY PO ; Start 11/12/18 at 09:00 Sodium Chloride 1,000 ml @ 75 mls/hr [id number] IV ; Start 11/11/18 at 12:05 Ondansetron HCl (Zofran) 4 mg PRN Q4HRS PRN IV NAUSEA/VOMITING; Start 11/11/18 at 12:15 Aspirin (Millicent Aspirin) 325 mg DAILYWBKFT PO ; Start 11/12/18 at 08:00 Magnesium Hydroxide (Milk Of Magnesia) 2,400 mg 1X PRN PRN PO CONSTIPATION; Start 11/12/18 at 06:00; Stop 11/13/18 at 05:59 Bisacodyl (Dulcolax Supp) 10 mg 1X PRN PRN PA CONSTIPATION; Start 11/12/18 at 16:00; Stop 11/13/18 at 15:59 Morphine Sulfate (Morphine Sulfate) 4 mg PRN Q2HR PRN IV PAIN; Start 11/11/18 at 12:15 Dextrose (Dextrose 50%-Water Syringe) 12.5 gm PRN Q15MIN PRN IV SEE COMMENTS; Start 11/11/18 at 12:15 Cefazolin Sodium/ Dextrose 50 ml @ 100 mls/hr Q6H IV ; Start 11/11/18 at 15:00; Stop 11/12/18 at 03:29 Oxycodone/ Acetaminophen (Percocet 5/325) 1 tab PRN Q4HRS PRN PO PAIN; Start 11/11/18 at 12:15 Oxycodone/ Acetaminophen (Percocet 5/325) 2 tab PRN Q4HRS PRN PO PAIN; Start 11/11/18 at 12:30 Active Scripts Active Brooks 5-325 Tablet (Acetaminophen/Hydrocodone Bitart) 1 Each Tablet 1 Tab PO PRN Q6HRS PRN Zofran Odt (Ondansetron) 4 Mg Tab.rapdis 1 Tab SL Q8HRS Cipro (Ciprofloxacin Hcl) 500 Mg Tablet 1 Tab PO BID Vitals/I & O Vital Sign - Last 24 Hours 11/10/18 11/10/18 11/10/18 11/10/18 14:32 15:00 16:30 16:34 Temp 98.2 97.2 98.2 97.2 Pulse 73 69 Resp 18 15 15 B/P (MAP) 171/101 (124) 176/81 Pulse Ox 96 96 96 95 O2 Delivery Room Air Room Air Room Air Room Air 11/10/18 11/10/18 11/10/18 11/10/18 17:00 18:09 18:10 19:00 Temp 98.0 98.0 Pulse 63 Resp 18 B/P (MAP) 155/78 (103) Pulse Ox 98 O2 Delivery Room Air Room Air Room Air Room Air 11/10/18 11/10/18 11/10/18 11/11/18 20:01 21:10 23:00 00:55 Temp 98.1 98.1 Pulse 69 Resp 18 B/P (MAP) 137/80 (99) Pulse Ox 98 95 95 O2 Delivery Room Air Room Air Room Air Room Air 11/11/18 11/11/18 11/11/18 11/11/18 01:55 03:00 03:10 03:40 Temp 98.1 98.1 Pulse 64 Resp 18 B/P (MAP) 149/92 (111) Pulse Ox 95 97 95 95 O2 Delivery Room Air Room Air Room Air Room Air 11/11/18 11/11/18 11/11/18 11/11/18 07:00 07:11 08:43 11:27 Temp 97.9 97.6 97.2 97.9 97.6 97.2 Pulse 67 58 92 Resp 18 20 18 B/P (MAP) 150/92 (111) 160/83 176/96 Pulse Ox 98 99 99 O2 Delivery Room Air Room Air Room Air Simple Mask O2 Flow Rate 8 11/11/18 11/11/18 11/11/18 11/11/18 11:27 11:40 11:46 11:53 Resp 18 18 18 Pulse Ox 99 99 94 O2 Delivery Mask Simple Mask Simple Mask Room Air O2 Flow Rate 8 8.0 8.0 11/11/18 11/11/18 11:58 12:00 Pulse 78 Resp 18 16 B/P (MAP) 138/81 Pulse Ox 94 94 O2 Delivery Room Air Room Air PARAMJIT RAMSEY MD Nov 11, 2018 12:44
[2018-11-11] MEDS: cloNIDine HCL 0.1 MG TABLET PO SCH ×2 (13:34→21:29)
[2018-11-11] MEDS: MORPHINE SULFATE 4 MG/ML VIAL. IV PRN (13:35)
[2018-11-11] MEDS: MULTIVIT INFUSN,ADULT 4,VIT K 10 ML, THIAMINE INJ 100 MG, FOLIC ACID INJ 1 MG in IV NOR... IV SCH (15:27)
[2018-11-11] MEDS: oxyCODONE/APAP 5/325 1 TAB TABLET PO PRN ×2 (15:28→19:50)
[2018-11-11] MEDS ORDERED: SCOPOLAMINE 1.5MG PATCH. TD SCH (15:30)
[2018-11-12] MEDS: IV 1/2 NORMAL SALINE 1,000 ML IV SCH (01:25)
[2018-11-12] MEDS: oxyCODONE/APAP 5/325 1 TAB TABLET PO PRN ×3 (03:06→12:41)
[2018-11-12 03:21] VITALS: BP 134/74
[2018-11-12 03:47] LABS: HEMATOCRIT 31.1 % (36.0-47.0); HEMOGLOBIN 10.7 g/dL (12.0-15.5)
[2018-11-12] MEDS: cloNIDine HCL 0.1 MG TABLET PO SCH (05:47)
[2018-11-12] MEDS: MORPHINE SULFATE 4 MG/ML VIAL. IV PRN (05:47)
[2018-11-12] MEDS ORDERED: MAGNESIUM HYDROXIDE 2,400 MG/30 ML ORAL.SUSP. PO PRN (06:00)
[2018-11-12 07:00] VITALS: BP 131/79
[2018-11-12] MEDS: IV RINGERS,LACTATED 1000ML 1,000 ML IV SCH (07:09)
[2018-11-12] MEDS ORDERED: ASPIRIN 325 MG TABLET PO SCH (08:00)
[2018-11-12] MEDS ORDERED: SENNOSIDES/DOCUSATE 8.6/50MG TABLET. PO SCH (09:00)
[2018-11-12] MEDS ORDERED: CHOLECALCIFEROL (VITAMIN D3) 1,000 UNIT TABLET PO SCH (09:00)
[2018-11-12] MEDS ORDERED: MULTIVITAMIN with MINERAL TABLET. PO SCH (09:00)
[2018-11-12] MEDS: MULTIVIT INFUSN,ADULT 4,VIT K 10 ML, THIAMINE INJ 100 MG, FOLIC ACID INJ 1 MG in IV NOR... IV SCH (09:06)
[2018-11-12] MEDS ORDERED: HYDR-3164 PO (09:07)
[2018-11-12] MEDS ORDERED: ASPI325T8 PO (09:07)
[2018-11-12] MEDS ORDERED: CHOL10002 PO (09:07)
[2018-11-12] MEDS ORDERED: CLON0.1T12 PO (09:07)
[2018-11-12] MEDS ORDERED: Nicotine 21MG TD (09:07)
[2018-11-12] MEDS ORDERED: MULT1TAB90 PO (09:07)
--- NOTE | 2018-11-12 09:18 | PDOC3 ---
Discharge Summary Visit Information Date of Admission: Nov 09, 2018 Date of Discharge: Nov 12, 2018 Admitting Diagnosis Comment: Right humerus fracture - s/p sx 11/11/2018 Scalp hematoma - Acute alcohol intoxication - levels 220s, 0 on dc Smoker HIgh BP - no dx HTN Final Diagnosis Problems Medical Problems: (1) Alcohol intoxication Status: Acute (2) Humeral surgical neck fracture Status: Acute (3) Humerus fracture Status: Acute (4) Scalp hematoma Status: Acute Brief Hospital Course Allergies Allergies Coded Allergies Type Severity Reaction Last Updated Verified Sulfa (Sulfonamide Antibiotics) Allergy Intermediate 03/18/17 Yes Vital Signs Vital Signs Date Time Temp Pulse Resp B/P (MAP) Pulse Ox O2 Delivery O2 Flow Rate FiO2 11/12/18 09:05 16 Room Air 11/12/18 07:00 98.1 60 131/79 (96) 99 98.1 11/11/18 11:46 8.0 Lab Results Laboratory Tests Test 11/11/18 05:00 11/12/18 03:25 White Blood Count 4.7 x10^3/uL (4.0-11.0) Red Blood Count 3.81 x10^6/uL (3.50-5.40) Hemoglobin 12.8 g/dL (12.0-15.5) 10.7 g/dL (12.0-15.5) Hematocrit 37.7 % (36.0-47.0) 31.1 % (36.0-47.0) Mean Corpuscular Volume 99 fL (79-100) Mean Corpuscular Hemoglobin 34 pg (25-35) Mean Corpuscular Hemoglobin Concent 34 g/dL (31-37) 34 g/dL (31-37) Red Cell Distribution Width 17.0 % (11.5-14.5) Platelet Count 190 x10^3/uL (140-400) Neutrophils (%) (Auto) 67 % (31-73) Lymphocytes (%) (Auto) 18 % (24-48) Monocytes (%) (Auto) 12 % (0-9) Eosinophils (%) (Auto) 3 % (0-3) Basophils (%) (Auto) 1 % (0-3) Neutrophils # (Auto) 3.2 x10^3uL (1.8-7.7) Lymphocytes # (Auto) 0.8 x10^3/uL (1.0-4.8) Monocytes # (Auto) 0.6 x10^3/uL (0.0-1.1) Eosinophils # (Auto) 0.1 x10^3/uL (0.0-0.7) Basophils # (Auto) 0.0 x10^3/uL (0.0-0.2) Sodium Level 139 mmol/L (136-145) Potassium Level 3.3 mmol/L (3.5-5.1) 4.0 mmol/L (3.5-5.1) Chloride Level 101 mmol/L (98-107) Carbon Dioxide Level 29 mmol/L (21-32) Anion Gap 9 (6-14) Blood Urea Nitrogen 2 mg/dL (7-20) Creatinine 0.7 mg/dL (0.6-1.0) Estimated GFR (Cockcroft-Gault) 108.5 BUN/Creatinine Ratio 3 (6-20) Glucose Level 88 mg/dL (70-99) Calcium Level 9.3 mg/dL (8.5-10.1) Total Bilirubin 1.1 mg/dL (0.2-1.0) Aspartate Amino Transf (AST/SGOT) 22 U/L (15-37) Alanine Aminotransferase (ALT/SGPT) 26 U/L (14-59) Alkaline Phosphatase 75 U/L (46-116) Total Protein 7.5 g/dL (6.4-8.2) Albumin 3.8 g/dL (3.4-5.0) Albumin/Globulin Ratio 1.0 (1.0-1.7) Ethyl Alcohol Level < 10 mg/dL (0-10) Laboratory Tests Test 11/12/18 03:25 Hemoglobin 10.7 g/dL (12.0-15.5) Hematocrit 31.1 % (36.0-47.0) Mean Corpuscular Hemoglobin Concent 34 g/dL (31-37) Potassium Level 4.0 mmol/L (3.5-5.1) Ethyl Alcohol Level < 10 mg/dL (0-10) Brief Hospital Course Ms. Pearson is a 48 old [place] female who fractured her right shoulder and also had some scalp hematoma, she was intoxicated with alcohol levels 220s on admission. Underwent surgery of that right shoulder , postop course unremarkable. Blood pressure on the high side- I started clonidine 0.1mgs 3 times a day, not on any BP meds at home. Alcohol levels less than 0 on discharge, we will teach her how to change the dressing. Alcohol rehabilitation referrals done Follow-up Dr. Enamorado orthopedics 2 weeks time of discharge No PT OT needs Discharge disposition home with family Consults performed Dr Enamorado Procedures performed right shoulder surgery Discharge Information Condition at Discharge: Improved, Stable Scheduled Aspirin (Aspirin) 325 Mg Tablet, 325 MG PO DAILYWBKFT for htn, primary prevention, #30 Prescribed by: PARAMJIT RAMSEY on 11/12/18 0907 Cholecalciferol (Vitamin D3) (Vitamin D) 1,000 Unit Tablet, 1,000 UNIT PO DAILY for low vit d, #30 Prescribed by: PARAMJIT RAMSEY on 11/12/18 09 Ciprofloxacin Hcl (Cipro) 500 Mg Tablet, 1 TAB PO BID, #14 Prescribed by: DASHAWN STEVE on 03/18/17 1729 Clonidine Hcl (Catapres) 0.1 Mg Tablet, 0.1 MG PO Q8HRS for htn for 30 Days, #90 Prescribed by: PARAMJIT RAMSEY on 11/12/18 0907 Multivits,Ca,Minerals/Iron/Fa (Thera-M Tablet) 1 Each Tablet, 1 TAB PO DAILY for mvi, #30 Prescribed by: PARAMJIT RAMSEY on 11/12/18 09 Ondansetron (Zofran Odt) 4 Mg Tab.rapdis, 1 TAB SL Q8HRS, #10 Prescribed by: DASHAWN STEVE on 03/18/17 1731 Scheduled PRN Hydrocodone/Apap 5-325 (Hanna 5-325 Tablet) 1 Each Tablet, 1 TAB PO PRN Q6HRS PRN for PAIN, #20 Ref 0 Prescribed by: PARAMJIT RAMSEY on 11/12/18 09 [Nicotine 21MG] 1 PATCH PATCH, 1 PATCH TD PRN DAILY PRN for SMOKING CESSATION, #10 Prescribed by: PARAMJIT RAMSEY on 11/12/18 09 PARAMJIT RAMSEY MD Nov 12, 2018 09:18
[2018-11-12 11:00] VITALS: BP 124/80
[2018-11-12] MEDS ORDERED: BISACODYL 10 MG SUPP.RECT. PR PRN (16:00)
[2018-11-14] MEDS ORDERED: SCOPOLAMINE 1.5MG PATCH. TD SCH (09:00)
== END 2018-11-12 13:53 | disposition home or self-care (01) | DRG 493 ==
LOC: ER 10:17 → 4 NORTH 12:15
PROVIDERS: ADMIT Internal Medicine; ATTEND Internal Medicine
PROC: 0PSC04Z Reposition Right Humeral Head with Internal Fixation Device, Open Approach (ICD-10-PCS; principal; 2018-11-11 08:45)
DX: S42.221A 2-part displaced fracture of surgical neck of right humerus, initial encounter for closed fracture (principal); R71.0 Precipitous drop in hematocrit; F10.129 Alcohol abuse with intoxication, unspecified; F32.9 Major depressive disorder, single episode, unspecified; F41.9 Anxiety disorder, unspecified; I50.9 Heart failure, unspecified; R03.0 Elevated blood-pressure reading, without diagnosis of hypertension; S00.81XA Abrasion of other part of head, initial encounter; S00.03XA Contusion of scalp, initial encounter; F17.210 Nicotine dependence, cigarettes, uncomplicated; Y90.7 Blood alcohol level of 200-239 mg/100 ml; W18.39XA Other fall on same level, initial encounter; Y93.89 Activity, other specified; Y92.89 Other specified places as the place of occurrence of the external cause; Y99.8 Other external cause status; Z90.710 Acquired absence of both cervix and uterus; Z88.2 Allergy status to sulfonamides; Z71.6 Tobacco abuse counseling; Z98.891 History of uterine scar from previous surgery
CPT/HCPCS: 36415; 70450; 73030; 73200; 73590; 76000; 80048; 80053; 82306; 83735; 84132; 85014; 85018; 85025; 85610; 85730; 90471; 90715; 96374; 96375; A7015; C1713; G0480; J0696; J0780; J1100; J1170; J2001; J2060; J2250; J2270; J2370; J2405; J2704; J2710; J3010; J3490; J7030; J7120; 97535; 99285-25

== ENCOUNTER 2018-12-18 03:31 | Emergency (ER) | payer MEDICAID ==
[~2018-12-18] VITALS: Ht 165.1 cm; Wt 76.2 kg
[~2018-12-18 03:31] MED LIST changes: +ASPI325T8 PO; +CHOL10002 PO; +CLON0.1T12 PO; +MULT1TAB90 PO; +Nicotine 21MG TD
[2018-12-18] MEDS ORDERED: IV NORMAL SALINE 1000ML BAG 1,000 ML IV SCH (04:00)
[2018-12-18] MEDS ORDERED: FAMOTIDINE 20 MG/2 ML VIAL IVP ONE (04:15)
[2018-12-18] MEDS ORDERED: ONDANSETRON PF 4 MG/2 ML VIAL. IV ONE (04:15)
[2018-12-18 04:58] LABS: BASO % 0 % (0-3); EOS % 0 % (0-3); HEMATOCRIT 43.9 % (36.0-47.0); HEMOGLOBIN 14.5 g/dL (12.0-15.5); LYMPH # 1.9 x10^3/uL (1.0-4.8); LYMPH % 19 % (24-48); MEAN CORPUSCULAR HEMOGLOBIN 33 pg (25-35); MEAN CORPUSCULAR HGB CONC 33 g/dL (31-37); MEAN CORPUSCULAR VOLUME 99 fL (79-100); MONO # 0.4 x10^3/uL (0.0-1.1); MONO % 4 % (0-9); NEUT # 7.9 x10^3/uL (1.8-7.7); NEUT % 77 % (31-73); PLATELET COUNT 224 x10^3/uL (140-400); RED BLOOD COUNT 4.45 x10^6/uL (3.50-5.40); RED CELL DISTRIBUTION WIDTH 15.3 % (11.5-14.5); WHITE BLOOD COUNT 10.3 x10^3/uL (4.0-11.0)
[2018-12-18 05:08] LABS: CALCIUM 9.4 mg/dL (8.5-10.1); GFR 71.9; POTASSIUM 3.5 mmol/L (3.5-5.1)
[2018-12-18 05:11] LABS: PROTHROMBIN TIME PATIENT 14.5 SEC (11.7-14.0)
[2018-12-18 05:12] LABS: BILIRUBIN,URINE NEGATIVE (NEG); CLARITY,URINE CLEAR; COLOR,URINE YELLOW; NITRITE,URINE NEGATIVE (NEG); PH,URINE 5.5; PROTEIN,URINE NEGATIVE (NEG-TRACE); UROBILINOGEN,URINE 0.2 mg/dL (0.2 mg/dL)
[2018-12-18 05:13] LABS: ACETAMIN < 2.0 mcg/ml (10-30); ETHANOL 197 mg/dL (0-10); SALIC 6.6 mg/dL (2.8-20.0)
[2018-12-18 05:14] LABS: ALBUMIN 4.4 g/dL (3.4-5.0); DIRECT BILIRUBIN 0.1 mg/dL (0.0-0.2); MAGNESIUM 1.7 mg/dL (1.8-2.4); TOTAL BILIRUBIN 0.5 mg/dL (0.2-1.0); TOTAL PROTEIN 8.3 g/dL (6.4-8.2)
[2018-12-18 05:19] LABS: BARBITURATES NEG (NEG); BENZODIAZEPINES NEG (NEG); CANNABINOIDS POS (NEG); COCAINE NEG (NEG); METHADONE NEG (NEG); OPIATES POS (NEG); PHENCYCLIDINE NEG (NEG)
[2018-12-18 05:20] LABS: AMPHETAMINE/METHAMPHETAMINE NEG (NEG)
[2018-12-18 05:23] LABS: BACTERIA,URINE 0 /HPF (0-FEW); RBC,URINE 0 /HPF (0-2); SQUAMOUS EPITHELIAL CELL,UR FEW /LPF; WBC,URINE OCC /HPF (0-4)
--- NOTE | 2018-12-18 05:26 | PHYS DOC ---
Past Medical History Past Medical History: Anxiety, CHF Past Surgical History: , Hysterectomy Alcohol Use: Occasionally Drug Use: Marijuana Adult General Chief Complaint Chief Complaint: ALCOHOL INTOXICATION HPI HPI Patient is a 48 year old female patient with history of alcohol abuse who presents with complaining of nausea and vomiting and diarrhea and abdominal pain. Patient stated she had history of right shoulder surgery about 4 months ago and did not have pain medication and ibuprofen and then had 1 pint of alcohol and developed 6 episodes of vomiting and 5 episodes of nonbloody diarrhea with generalized abdominal pain. Patient had active vomiting at arrival to ER and was very agitated and anxious. Review of Systems Review of Systems Constitutional: Denies fever or chills [] Eyes: Denies change in visual acuity, redness, or eye pain [] HENT: Denies nasal congestion or sore throat [] Respiratory: Denies cough or shortness of breath [] Cardiovascular: No additional information not addressed in HPI [] GI: Reports abdominal pain, nausea, vomiting, diarrhea [] : Denies dysuria or hematuria [] Musculoskeletal: Denies back pain, reports joint pain [] Integument: Denies rash or skin lesions [] Neurologic: Denies headache, focal weakness or sensory changes [] Endocrine: Denies polyuria or polydipsia [] All other systems were reviewed and found to be within normal limits, except as documented in this note. Current Medications Current Medications Current Medications Medications (Trade) Dose Ordered Sig/Eros Start Time Stop Time Status Last Admin Dose Admin Famotidine (Pepcid Vial) 20 mg 1X ONCE 12/18/18 04:15 12/18/18 04:16 DC 12/18/18 04:13 20 MG Lorazepam (Ativan Inj) 2 mg 1X ONCE 12/18/18 05:15 12/18/18 05:16 DC 12/18/18 05:38 2 MG Ondansetron HCl (Zofran) 4 mg 1X ONCE 12/18/18 04:15 12/18/18 04:16 DC 12/18/18 04:13 4 MG Sodium Chloride 1,000 ml @ 1,000 mls/hr Q1H 12/18/18 04:00 12/18/18 04:59 DC 12/18/18 04:13 1,000 MLS/HR Allergies Allergies Allergies Coded Allergies Type Severity Reaction Last Updated Verified Sulfa (Sulfonamide Antibiotics) Allergy Intermediate 03/18/17 Yes Physical Exam Physical Exam Constitutional: Moderate distress, non-toxic appearance, agitated and anxious, smelling of alcohol on breath. [] HENT: Normocephalic, atraumatic, oropharynx dry, no oral exudates, nose normal. [] Eyes: PERRLA, EOMI, conjunctiva normal, no discharge. [] Neck: Normal range of motion, no tenderness, supple, no stridor. [] Cardiovascular:Heart rate regular rhythm, no murmur [] Lungs & Thorax: Bilateral breath sounds clear to auscultation [] Abdomen: Bowel sounds normal, soft, no tenderness, no masses, no pulsatile masses. [] Skin: Warm, dry, no erythema, no rash. [] Back: No tenderness, no CVA tenderness. [] Extremities: No tenderness, no cyanosis, no clubbing, ROM intact, no edema. [] Neurologic: Alert and oriented X 3, normal motor function, normal sensory function, no focal deficits noted. [] Psychologic: Affect anxious and agitated, limited evaluation because of agitation, mood normal. [] Current Patient Data Vital Signs Vital Signs Date Time Temp Pulse Resp B/P (MAP) Pulse Ox O2 Delivery O2 Flow Rate FiO2 12/18/18 05:48 96 18 155/79 (104) 95 Room Air 12/18/18 03:46 98.8 98.8 Lab Values Laboratory Tests Test 12/18/18 04:30 12/18/18 04:37 White Blood Count 10.3 x10^3/uL (4.0-11.0) Red Blood Count 4.45 x10^6/uL (3.50-5.40) Hemoglobin 14.5 g/dL (12.0-15.5) Hematocrit 43.9 % (36.0-47.0) Mean Corpuscular Volume 99 fL (79-100) Mean Corpuscular Hemoglobin 33 pg (25-35) Mean Corpuscular Hemoglobin Concent 33 g/dL (31-37) Red Cell Distribution Width 15.3 % (11.5-14.5) H Platelet Count 224 x10^3/uL (140-400) Neutrophils (%) (Auto) 77 % (31-73) H Lymphocytes (%) (Auto) 19 % (24-48) L Monocytes (%) (Auto) 4 % (0-9) Eosinophils (%) (Auto) 0 % (0-3) Basophils (%) (Auto) 0 % (0-3) Neutrophils # (Auto) 7.9 x10^3/uL (1.8-7.7) H Lymphocytes # (Auto) 1.9 x10^3/uL (1.0-4.8) Monocytes # (Auto) 0.4 x10^3/uL (0.0-1.1) Eosinophils # (Auto) 0.0 x10^3/uL (0.0-0.7) Basophils # (Auto) 0.0 x10^3/uL (0.0-0.2) Prothrombin Time 14.5 SEC (11.7-14.0) H Prothrombin Time INR 1.2 (0.8-1.1) H Sodium Level 146 mmol/L (136-145) H Potassium Level 3.5 mmol/L (3.5-5.1) Chloride Level 107 mmol/L (98-107) Carbon Dioxide Level 14 mmol/L (21-32) L Anion Gap 25 (6-14) H Blood Urea Nitrogen 8 mg/dL (7-20) Creatinine 1.0 mg/dL (0.6-1.0) Estimated GFR (Cockcroft-Gault) 71.9 Glucose Level 87 mg/dL (70-99) Calcium Level 9.4 mg/dL (8.5-10.1) Magnesium Level 1.7 mg/dL (1.8-2.4) L Total Bilirubin 0.5 mg/dL (0.2-1.0) Direct Bilirubin 0.1 mg/dL (0.0-0.2) Aspartate Amino Transferase (AST) 14 U/L (15-37) L Alanine Aminotransferase (ALT) 16 U/L (14-59) Alkaline Phosphatase 78 U/L (46-116) Total Protein 8.3 g/dL (6.4-8.2) H Albumin 4.4 g/dL (3.4-5.0) Salicylates Level 6.6 mg/dL (2.8-20.0) Salicylate Last Dose Date Unknown Salicylate Last Dose Time Unknown Acetaminophen Level < 2.0 mcg/ml (10-30) L Acetaminophen Last Dose Date Unknown Acetaminophen Last Dose Time Unknown Ethyl Alcohol Level 197 mg/dL (0-10) H Urine Collection Type U cath Urine Color Yellow Urine Clarity Clear Urine pH 5.5 Urine Specific [place] 1.015 Urine Protein Negative mg/dL (NEG-TRACE) Urine Glucose (UA) Negative mg/dL (NEG) Urine Ketones (Stick) 40 mg/dL (NEG) Urine Blood Negative (NEG) Urine Nitrite Negative (NEG) Urine Bilirubin Negative (NEG) Urine Urobilinogen Dipstick 0.2 mg/dL (0.2 mg/dL) Urine Leukocyte Esterase Negative (NEG) Urine RBC 0 /HPF (0-2) Urine WBC Occ /HPF (0-4) Urine Squamous Epithelial Cells Few /LPF Urine Bacteria 0 /HPF (0-FEW) Urine Mucus Mod /LPF Urine Opiates Screen Pos (NEG) Urine Methadone Screen Neg (NEG) Urine Barbiturates Neg (NEG) Urine Phencyclidine Screen Neg (NEG) Urine Amphetamine/Methamphetamine Neg (NEG) Urine Benzodiazepines Screen Neg (NEG) Urine Cocaine Screen Neg (NEG) Urine Cannabinoids Screen Pos (NEG) Urine Ethyl Alcohol Pos (NEG) Laboratory Tests 12/18/18 04:30 Laboratory Tests 12/18/18 04:30 EKG EKG [] Radiology/Procedures Radiology/Procedures [] Course & Med Decision Making Course & Med Decision Making Pertinent Labs reviewed. (See chart for details) Evaluation of patient in ER showed 48-year-old male patient with history of alcohol abuse and complaining of nausea and vomiting and diarrhea. Patient had active vomiting at arrival to ER with agitation and several episodes of diarrhea. Patient treated with IV fluid and Zofran and Ativan with improvement of his condition. Labs was unremarkable except for blood alcohol of 197 and magnesium of 1.7. Patient is sleeping without problem. Plan to reevaluate patient after waking up and ambulate the patient for possible discharge home. Sign out given to at 0600 for further evaluation and final disposition. Discussed current findings and plan with patient and family, who acknowledge understanding and agreement. Dragon Disclaimer Dragon Disclaimer This electronic medical record was generated, in whole or in part, using a voice recognition dictation system. Departure Departure Impression: Primary Impression: Acute gastroenteritis Additional Impressions: Alcohol abuse Substance abuse Hypomagnesemia Anxiety Referrals: NO PCP (PCP) Problem Qualifiers KERRY MARTIN MD Dec 18, 2018 05:26
[2018-12-18 07:18] VITALS: BP 141/72
--- NOTE | 2018-12-22 10:44 | NUR ---
Late entry made to Medical Record. IV Stop time transcribed from eMAR to IV spreadsheet
== END 2018-12-18 07:44 | disposition home or self-care (01) ==
LOC: ER 03:31
DX: K52.9 Noninfective gastroenteritis and colitis, unspecified (principal); F10.129 Alcohol abuse with intoxication, unspecified; Y90.6 Blood alcohol level of 120-199 mg/100 ml; F12.10 Cannabis abuse, uncomplicated; F41.9 Anxiety disorder, unspecified; E83.42 Hypomagnesemia; Z90.710 Acquired absence of both cervix and uterus; Z86.79 Personal history of other diseases of the circulatory system; Z88.2 Allergy status to sulfonamides
CPT/HCPCS: 36415; 80048; 80076; 80307; 80329; 81001; 83735; 85025; 85610; 96361; 96374; 96375; 99284; G0480; J2060; J2405; J3490; J7030

== ENCOUNTER → 2018-12-26 | Outpatient (CLI) | payer MEDICARE, MEDICAID ==
[2018-12-18 07:18] VITALS: BP 141/72
--- NOTE | 2018-12-26 16:16 | RAD ---
EXAM: 3 views right shoulder DATE: 12/26/2018 12:00 AM INDICATION: CLOSED 2-PART DISPLACED FRACTURE OF SURGICAL NECK RIGHT HUMERUS COMPARISON: 11/27/2018 FINDINGS/ IMPRESSION: Selective fixation of the comminuted proximal right humeral fracture is in stable alignment without definite hardware complication. Subtle periosteal reaction suggests changes of early healing. Electronically signed by: Del Callahan MD (12/26/2018 4:13 PM) [facility]
== END | disposition home or self-care (01) ==
LOC: RAD 10:28
PROVIDERS: ATTEND Physician Assistant
DX: S42.221D 2-part displaced fracture of surgical neck of right humerus, subsequent encounter for fracture with routine healing (principal); X58.XXXD Exposure to other specified factors, subsequent encounter
CPT/HCPCS: 73030

== ENCOUNTER 2019-04-14 20:32 | Emergency (ER) | payer MEDICARE, MEDICAID ==
[~2019-04-14] VITALS: Ht 160 cm; Wt 72.6 kg
[2019-04-14] MEDS ORDERED: IV NORMAL SALINE 1000ML BAG 1,000 ML IV SCH (21:15)
[2019-04-14] MEDS ORDERED: FAMOTIDINE 20 MG/2 ML VIAL IVP ONE (21:15)
[2019-04-14] MEDS ORDERED: fentaNYL PF VIAL 100 MCG/2 ML VIAL IV ONE (21:15)
[2019-04-14] MEDS ORDERED: ONDANSETRON PF 4 MG/2 ML VIAL. IV ONE (21:15)
[2019-04-14 21:24] LABS: BASO % 0 % (0-3); EOS % 0 % (0-3); HEMATOCRIT 42.8 % (36.0-47.0); HEMOGLOBIN 14.5 g/dL (12.0-15.5); LYMPH # 1.2 x10^3/uL (1.0-4.8); LYMPH % 12 % (24-48); MEAN CORPUSCULAR HEMOGLOBIN 32 pg (25-35); MEAN CORPUSCULAR HGB CONC 34 g/dL (31-37); MEAN CORPUSCULAR VOLUME 94 fL (79-100); MONO # 0.5 x10^3/uL (0.0-1.1); MONO % 5 % (0-9); NEUT # 7.8 x10^3/uL (1.8-7.7); NEUT % 82 % (31-73); PLATELET COUNT 269 x10^3/uL (140-400); RED BLOOD COUNT 4.53 x10^6/uL (3.50-5.40); RED CELL DISTRIBUTION WIDTH 15.7 % (11.5-14.5); WHITE BLOOD COUNT 9.5 x10^3/uL (4.0-11.0)
[2019-04-14 21:38] LABS: CALCIUM 10.6 mg/dL (8.5-10.1); CREATININE 0.9 mg/dL (0.6-1.0); GFR 80.9; POTASSIUM 3.7 mmol/L (3.5-5.1)
[2019-04-14 21:45] LABS: ALBUMIN 5.2 g/dL (3.4-5.0); ALBUMIN/GLOBULIN RATIO 1.4 (1.0-1.7); TOTAL BILIRUBIN 0.8 mg/dL (0.2-1.0); TOTAL PROTEIN 8.8 g/dL (6.4-8.2)
[2019-04-14] MEDS ORDERED: CONTRAST GIVEN. MC PRN (22:15)
[2019-04-14] MEDS ORDERED: IOHEXOL 300 MG/ML 100ML VIAL. IV ONE (22:15)
--- NOTE | 2019-04-14 22:23 | PHYS DOC ---
Past Medical History Past Medical History: Anxiety, CHF, Hypertension Additional Past Medical Histor: ETOH Past Surgical History: , Hysterectomy Alcohol Use: Heavy Additional Information: PT DENIES ETOH USE SINCE 11/2018 Drug Use: Marijuana The HEART Score for CP Pts HEART Score for Chest Pain: HEART Score for Chest Pain Response (Comments) Value History Slighlty/Non-Suspicious 0 ECG Normal 0 Age >45 - < 65 1 Risk Factors 1 or 2 Risk Factors 1 Troponin < Normal Limit 0 Total 2 Risk Factors: Risk Factors: DM, Current or recent (<one month) smoker, HTN, HLP, family history of CAD, obesity. Risk Scores: Score 0 - 3: 2.5% MACE over next 6 weeks - Discharge Home Score 4 - 6: 20.3% MACE over next 6 weeks - Admit for Clinical Observation Score 7 - 10: 72.7% MACE over next 6 weeks - Early Invasive Strategies Adult General Chief Complaint Chief Complaint: ABDOMINAL PAIN HPI HPI Patient is a 49 year old female who presents with nausea, vomiting, diarrhea and upper abdominal pain since 11 AM today. Patient states she has a focus for the last couple of days with some nausea. Patient states that she does smoke marijuana and she has not drank since November. Patient states she's had a hysterectomy and she does have CHF. Review of Systems Review of Systems GI: abdominal pain, nausea, vomiting, denies bloody stools or + diarrhea [] All other systems were reviewed and found to be within normal limits, except as documented in this note. Current Medications Current Medications Current Medications Medications (Trade) Dose Ordered Sig/Eros Start Time Stop Time Status Last Admin Dose Admin Famotidine (Pepcid Vial) 20 mg 1X ONCE 04/14/19 21:15 04/14/19 21:16 DC 04/14/19 21:29 20 MG Fentanyl Citrate (Fentanyl 2ml Vial) 50 mcg 1X ONCE 04/14/19 22:30 04/14/19 22:31 DC 04/14/19 22:26 50 MCG Info (CONTRAST GIVEN -- Rx MONITORING) 1 each PRN DAILY PRN 04/14/19 22:15 04/16/19 22:14 Iohexol (Omnipaque 300 Mg/ml) 75 ml 1X ONCE 04/14/19 22:15 04/14/19 22:16 DC 04/14/19 22:41 75 ML Ondansetron HCl (Zofran) 8 mg 1X ONCE 04/14/19 21:15 04/14/19 21:16 DC 04/14/19 21:30 8 MG Prochlorperazine Edisylate (Compazine) 10 mg 1X ONCE 04/14/19 22:30 04/14/19 22:31 DC 04/14/19 22:26 10 MG Sodium Chloride 1,000 ml @ 1,000 mls/hr 1X ONCE 04/14/19 22:30 04/14/19 23:29 DC 04/14/19 22:26 1,000 MLS/HR Allergies Allergies Allergies Coded Allergies Type Severity Reaction Last Updated Verified Sulfa (Sulfonamide Antibiotics) Allergy Intermediate 03/18/17 Yes Physical Exam Physical Exam Constitutional: Well developed, well nourished, no acute distress, non-toxic appearance. [] HENT: Normocephalic, atraumatic, bilateral external ears normal, oropharynx moist, no oral exudates, nose normal. [] Eyes: PERRLA, EOMI, conjunctiva normal, no discharge. [] Neck: Normal range of motion, no tenderness, supple, no stridor. [] Cardiovascular:Heart rate regular rhythm, no murmur [] Lungs & Thorax: Bilateral breath sounds clear to auscultation [] Abdomen: Bowel sounds normal, soft, upper tenderness, no masses, no pulsatile masses. [] Skin: Warm, dry, no erythema, no rash. [] Neurologic: Alert and oriented X 3, normal motor function, normal sensory function, no focal deficits noted. [] Psychologic: Affect normal, judgement normal, mood normal. [] Current Patient Data Vital Signs Vital Signs Date Time Temp Pulse Resp B/P (MAP) Pulse Ox O2 Delivery O2 Flow Rate FiO2 04/14/19 22:30 99 22 152/91 (111) 99 Room Air 04/14/19 20:40 97.7 97.7 Lab Values Laboratory Tests Test 04/14/19 20:50 04/14/19 22:25 White Blood Count 9.5 x10^3/uL (4.0-11.0) Red Blood Count 4.53 x10^6/uL (3.50-5.40) Hemoglobin 14.5 g/dL (12.0-15.5) Hematocrit 42.8 % (36.0-47.0) Mean Corpuscular Volume 94 fL (79-100) Mean Corpuscular Hemoglobin 32 pg (25-35) Mean Corpuscular Hemoglobin Concent 34 g/dL (31-37) Red Cell Distribution Width 15.7 % (11.5-14.5) H Platelet Count 269 x10^3/uL (140-400) Neutrophils (%) (Auto) 82 % (31-73) H Lymphocytes (%) (Auto) 12 % (24-48) L Monocytes (%) (Auto) 5 % (0-9) Eosinophils (%) (Auto) 0 % (0-3) Basophils (%) (Auto) 0 % (0-3) Neutrophils # (Auto) 7.8 x10^3/uL (1.8-7.7) H Lymphocytes # (Auto) 1.2 x10^3/uL (1.0-4.8) Monocytes # (Auto) 0.5 x10^3/uL (0.0-1.1) Eosinophils # (Auto) 0.0 x10^3/uL (0.0-0.7) Basophils # (Auto) 0.0 x10^3/uL (0.0-0.2) Prothrombin Time 13.0 SEC (11.7-14.0) Prothrombin Time INR 1.0 (0.8-1.1) Sodium Level 143 mmol/L (136-145) Potassium Level 3.7 mmol/L (3.5-5.1) Chloride Level 102 mmol/L (98-107) Carbon Dioxide Level 21 mmol/L (21-32) Anion Gap 20 (6-14) H Blood Urea Nitrogen 11 mg/dL (7-20) Creatinine 0.9 mg/dL (0.6-1.0) Estimated GFR (Cockcroft-Gault) 80.9 BUN/Creatinine Ratio 12 (6-20) Glucose Level 125 mg/dL (70-99) H Calcium Level 10.6 mg/dL (8.5-10.1) H Total Bilirubin 0.8 mg/dL (0.2-1.0) Aspartate Amino Transferase (AST) 18 U/L (15-37) Alanine Aminotransferase (ALT) 16 U/L (14-59) Alkaline Phosphatase 91 U/L (46-116) Troponin I Quantitative < 0.017 ng/mL (0.000-0.055) NQ-Ryc-W-Type Natriuretic Peptide 96 pg/mL (0-124) Total Protein 8.8 g/dL (6.4-8.2) H Albumin 5.2 g/dL (3.4-5.0) H Albumin/Globulin Ratio 1.4 (1.0-1.7) Lipase 164 U/L (73-393) Ethyl Alcohol Level < 10 mg/dL (0-10) Urine Collection Type Unknown Urine Color Yellow Urine Clarity Clear Urine pH 7.0 Urine Specific [place] 1.020 Urine Protein Negative mg/dL (NEG-TRACE) Urine Glucose (UA) Negative mg/dL (NEG) Urine Ketones (Stick) >=80 mg/dL (NEG) Urine Blood Negative (NEG) Urine Nitrite Negative (NEG) Urine Bilirubin Negative (NEG) Urine Urobilinogen Dipstick 0.2 mg/dL (0.2 mg/dL) Urine Leukocyte Esterase Negative (NEG) Urine RBC 1-2 /HPF (0-2) Urine WBC 1-4 /HPF (0-4) Urine Squamous Epithelial Cells Mod /LPF Urine Bacteria Few /HPF (0-FEW) Urine Mucus Mod /LPF Urine Opiates Screen Neg (NEG) Urine Methadone Screen Neg (NEG) Urine Barbiturates Neg (NEG) Urine Phencyclidine Screen Neg (NEG) Urine Amphetamine/Methamphetamine Neg (NEG) Urine Benzodiazepines Screen Neg (NEG) Urine Cocaine Screen Neg (NEG) Urine Cannabinoids Screen Pos (NEG) Urine Ethyl Alcohol Neg (NEG) Laboratory Tests 04/14/19 20:50 Laboratory Tests 04/14/19 20:50 EKG EKG Sinus rhythm and no STEMI[] Interpretation Time: [address] Blankenship Radiology/Procedures Radiology/Procedures [] Impressions: [facility] [address] [place], [place] [id number] IMAGING REPORT Signed PATIENT: JOSE JOSE ACCOUNT: [id number] : 1970 LOCATION: ER AGE: 49 SEX: F EXAM STATUS: REG ER ORD. PHYSICIAN: JOMAR SPENCER APRN REASON: Epigastric pain PROCEDURE: PORTABLE CHEST 1V PORTABLE CHEST 1V History: Epigastric pain. Comparison: None. Findings: No consolidation or pleural effusion. Normal heart size. Impression: 1. No acute cardiopulmonary process. Electronically signed by: Edis Rosen DO (04/14/2019 11:03 PM) [facility] DICTATED and SIGNED BY: EDIS ROSEN DO DATE: 04/14/19 2308 [facility] [address] [place] [address] IMAGING REPORT Signed PATIENT: JOSE JOSE ACCOUNT: [id number] : 1970 LOCATION: ER AGE: 49 SEX: F EXAM STATUS: REG ER ORD. PHYSICIAN: JOMAR SPENCER APRN REASON: UPPER ABD PAIN, N, V, D PROCEDURE: CT ABD PELV W/ IV CONTRST ONLY CT ABD PELV W/ IV CONTRST ONLY History: Upper abdominal pain. Nausea and vomiting diarrhea Technique: After the administration of intravenous contrast, CT imaging was performed of the abdomen and pelvis. Multiplanar images are reviewed. Exposure: One or more of the following individualized dose reduction techniques were utilized for this examination: 1. Automated exposure control 2. Adjustment of the mA and/or kV according to patient size 3. Use of iterative reconstruction technique. Comparison: None Findings: Lower chest: No consolidation or pleural effusion. Abdomen and pelvis: Mild distal esophageal wall thickening. Mild gastric wall thickening. The liver, spleen, adrenal glands, pancreas and gallbladder are unremarkable. No biliary ductal dilatation. Patent portal veins. Colonic diverticulosis. Normal appendix. No evidence of small bowel obstruction. No pathologic lymphadenopathy. No ascites. Decompressed urinary bladder. Bones: No pathologic osseous lesions. Impression: 1. Mild distal esophageal and gastric wall thickening, may represent esophagitis/gastritis. 2. Clonic diverticulosis. Electronically signed by: Edis Rosen DO (04/14/2019 11:11 PM) [facility] DICTATED and SIGNED BY: EDIS ROSEN DO DATE: 04/14/19 2311 Course & Med Decision Making Course & Med Decision Making Patient is vomiting yellow bile. Denies blood in her vomit or stool. Alert and oriented. Speaks in clear sentences. Denies dizziness, headache, chest pain, shortness of air, numbness and tingling, weakness. No focal weaknesses. PERRLA. Skin pink warm and dry. Rates her pain a 10 out of 10 in her upper abdomen. Tenderness to the bilateral upper abdomen. No extremity edema. Denies any Fevers or recent illnesses. Lungs are clear sensation all lobes. She denies taking any medications before arrival other states that earlier today she took ibuprofen. After 8 mg of Zofran and 50 mcg of fentanyl patient was still in pain and still vomiting. I have ordered her Compazine and Fentanyl. Chest x-ray shows no acute findings. Lab work shows no acute findings. CT ABD PELV shows Impression: 1. Mild distal esophageal and gastric wall thickening, may represent esophagitis/gastritis. 2. Clonic diverticulosis. Patient states she is feeling much better and is currently being by mouth challenged. Patient is educated to slowly increase her diet and that she needs to follow up with a GI doctor as soon as possible. Patient was successful with PO challenge. Patient without pain. Dragon Disclaimer Dragon Disclaimer This electronic medical record was generated, in whole or in part, using a voice recognition dictation system. Departure Departure Impression: Primary Impression: Nausea & vomiting Additional Impression: Gastritis Disposition: HOME, SELF-CARE Condition: STABLE Referrals: NO PCP (PCP) ROMEL RIGGINS MD Patient Instructions: Esophagitis, Gastritis, Adult Additional Instructions: Follow-up with Dr. العراقي as soon as possible. Take medications as prescribed. Slowly increase your diet. Scripts Ondansetron (ONDANSETRON ODT) 4 Mg Tab.rapdis 1 TAB PO PRN Q6-8HRS, #30 TAB Prov: JOMAR SPENCER APRN 04/14/19 Famotidine (PEPCID) 20 Mg Tablet 20 MG PO BID, #30 TAB Prov: JOMAR SPENCER APRN 04/14/19 Problem Qualifiers Primary Impression: Nausea & vomiting Vomiting type: bilious vomiting Qualified Codes: R11.14 - Bilious vomiting Additional Impression: Gastritis Gastritis type: unspecified gastritis Chronicity: acute Gastritis bleeding: without bleeding Qualified Codes: K29.00 - Acute gastritis without bleeding JOMAR SPENCER APRN Apr 14, 2019 22:23
[2019-04-14] MEDS ORDERED: PROCHLORPERAZINE 10 MG/2 ML VIAL. IV ONE (22:30)
[2019-04-14] MEDS ORDERED: fentaNYL PF VIAL 100 MCG/2 ML VIAL IVP ONE (22:30)
[2019-04-14] MEDS ORDERED: IV NORMAL SALINE 1000ML BAG 1,000 ML IV ONE (22:30)
[2019-04-14 22:37] LABS: BILIRUBIN,URINE NEGATIVE (NEG); CLARITY,URINE CLEAR; COLOR,URINE YELLOW; NITRITE,URINE NEGATIVE (NEG); PROTEIN,URINE NEGATIVE (NEG-TRACE); UROBILINOGEN,URINE 0.2 mg/dL (0.2 mg/dL)
[2019-04-14 22:43] LABS: BARBITURATES NEG (NEG); BENZODIAZEPINES NEG (NEG); CANNABINOIDS POS (NEG); COCAINE NEG (NEG); METHADONE NEG (NEG); OPIATES NEG (NEG); PHENCYCLIDINE NEG (NEG)
[2019-04-14 22:44] LABS: AMPHETAMINE/METHAMPHETAMINE NEG (NEG)
[2019-04-14 22:45] LABS: BACTERIA,URINE FEW /HPF (0-FEW); SQUAMOUS EPITHELIAL CELL,UR MOD /LPF
--- NOTE | 2019-04-14 23:06 | RAD ---
PORTABLE CHEST 1V History: Epigastric pain. Comparison: None. Findings: No consolidation or pleural effusion. Normal heart size. Impression: 1. No acute cardiopulmonary process. Electronically signed by: Edis Rosen DO (04/14/2019 11:03 PM) [facility]
--- NOTE | 2019-04-14 23:14 | RAD ---
CT ABD PELV W/ IV CONTRST ONLY History: Upper abdominal pain. Nausea and vomiting diarrhea Technique: After the administration of intravenous contrast, CT imaging was performed of the abdomen and pelvis. Multiplanar images are reviewed. Exposure: One or more of the following individualized dose reduction techniques were utilized for this examination: 1. Automated exposure control 2. Adjustment of the mA and/or kV according to patient size 3. Use of iterative reconstruction technique. Comparison: None Findings: Lower chest: No consolidation or pleural effusion. Abdomen and pelvis: Mild distal esophageal wall thickening. Mild gastric wall thickening. The liver, spleen, adrenal glands, pancreas and gallbladder are unremarkable. No biliary ductal dilatation. Patent portal veins. Colonic diverticulosis. Normal appendix. No evidence of small bowel obstruction. No pathologic lymphadenopathy. No ascites. Decompressed urinary bladder. Bones: No pathologic osseous lesions. Impression: 1. Mild distal esophageal and gastric wall thickening, may represent esophagitis/gastritis. 2. Clonic diverticulosis. Electronically signed by: Edis Rosen DO (04/14/2019 11:11 PM) [facility]
[2019-04-14] MEDS ORDERED: ONDA4TAB12 PO (23:30)
[2019-04-14] MEDS ORDERED: FAMO-63 PO (23:30)
[2019-04-14 23:45] VITALS: BP 151/93
--- NOTE | 2019-04-15 05:37 | EKG ---
[facility] [address] [place] [address] Test Date: 2019-04-14 Test Time: 21:43:12 Pat Name: JOSE JOSE Department: Room: Gender: F Welfare Administrator: : 1970 Requested By: JOMAR SPENCER Order Number: [id number] Reading MD: Measurements Intervals [place] Rate: 88 P: 41 [place]: 166 QRS: 28 QRSD: 82 T: 26 QT: 386 QTc: 471 Interpretive Statements SINUS RHYTHM LEFT ATRIAL ABNORMALITY QRS(T) CONTOUR ABNORMALITY CONSIDER ANTEROSEPTAL MYOCARDIAL DAMAGE ABNORMAL ECG RI6.01 No previous ECG available for comparison
== END 2019-04-14 23:50 | disposition home or self-care (01) ==
LOC: ER 20:32
DX: K29.00 Acute gastritis without bleeding (principal); I11.0 Hypertensive heart disease with heart failure; I50.9 Heart failure, unspecified; F41.9 Anxiety disorder, unspecified; F10.20 Alcohol dependence, uncomplicated; Y90.9 Presence of alcohol in blood, level not specified; Z90.710 Acquired absence of both cervix and uterus; Z88.2 Allergy status to sulfonamides
CPT/HCPCS: 36415; 71045; 74177; 80053; 80307; 81001; 83690; 83880; 84484; 85025; 85610; 93005; 96361; 96374; 96375; 96376; 99285; G0480; J0780; J2405; J3010; J3490; J7030; Q9967